=== PATIENT | female | born 1995 | race Caucasian/White ===

== ENCOUNTER → 2020-07-11 12:15 | Outpatient (CLI) | payer BC, SELFPAY ==
[2020-07-11 13:03] LABS: hCG Titer Quant., Serum 686 mIU/mL (1-3)
== END ==
PROVIDERS: PCP Family Medicine; Referring Provider Obstetrics & Gynecology; Visit Provider Obstetrics & Gynecology
DX: N91.2 Amenorrhea, unspecified (principal)
CPT/HCPCS: 36415; 84702

== ENCOUNTER → 2020-07-13 10:42 | Outpatient (CLI) | payer BC, SELFPAY ==
[2020-07-13 11:51] LABS: hCG Titer Quant., Serum 1836 mIU/mL (1-3)
== END ==
PROVIDERS: PCP Family Medicine; Referring Provider Obstetrics & Gynecology; Visit Provider Obstetrics & Gynecology
DX: O36.80X0 Pregnancy with inconclusive fetal viability, not applicable or unspecified (principal); Z3A.00 Weeks of gestation of pregnancy not specified
CPT/HCPCS: 36415; 84702

== ENCOUNTER → 2020-08-04 12:08 | Outpatient (CLI) | payer BC, SELFPAY ==
[2020-08-04 11:12] VITALS: BMI 31.6
[2020-08-04 13:08] LABS: Absolute Lymphocyte Count 1.37 X10^3/uL (0.83-4.51); Absolute Neutrophil Count 5.1 X10^3/uL (2.0-7.7); Basophil# 0.03 X10^3/uL; Basophil% 0.4 % (0-1); Eosinophil# 0.06 X10^3/uL; Eosinophils% 0.8 % (0-5); Hematocrit 41.1 % (37-47); Hemoglobin 14.2 g/dL (12.0-15.0); Lymphocyte # 1.37 X10^3/ul (4.0); Lymphocyte % 19.1 % (19-41); Mean Corp Hgb Conc 34.5 g/dL (32-36); Mean Corpuscular Hgb 31.6 pg (27.0-32.0); Mean Corpuscular Volume 91.3 fL (81-99); Mean Platelet Vol. 9.5 fl (6.2-12.0); Monocyte# 0.55 X10^3/uL; Monocyte% 7.7 % (0-10); NRBC Flagged by Analyzer 0 % (0-5); Neutrophil # 5.13 X10^3/uL (2.7-7.7); Neutrophil % 71.7 % (47-70); Platelet Count 297 K/mm3 (150-450); RBC Distribution Width CV 12.4 % (11.6-14.6); RBC Distribution Width SD 41.3 fl (35.1-43.9); White Blood Count 7.2 K/mm3 (4.4-11.0)
[2020-08-04 14:41] LABS: Amphetamine Urine VISTA NEGATIVE (<1000 ng/mL); Barbiturate Urine VISTA NEGATIVE (< 200 ng/mL); Benzodiazepine Urine VISTA NEGATIVE (< 200 ng/mL); Cocaine Urine VISTA NEGATIVE (< 300 ng/mL); Ecstacy Urine VISTA NEGATIVE (< 500 ng/mL); Methadone Urine VISTA NEGATIVE (< 300 ng/mL); PCP Urine VISTA NEGATIVE (< 25 ng/mL); THC Urine VISTA NEGATIVE (< 50 ng/mL); Vista UDS pH Range 6
[2020-08-04 15:17] LABS: HIV - WCH Non-Reactive (Nonreactive); Hepatitis B Surface Antigen Non-Reactive (Nonreactive); Hepatitis C Antibody Non-Reactive (Nonreactive); Rubella IgG 115.9 IU/mL
[2020-08-09 04:09] LABS: Chlamydia By Nucleic Acid AMP Negative (Negative)
[2020-08-09 10:29] LABS: Gonococcus By Nucleic Acid AMP Negative (Negative)
[2020-08-11 05:22] LABS: Rapid Plasmin Reagin (RPR) NONREACTIVE (NONREACTIVE)
== END ==
PROVIDERS: PCP Family Medicine; Referring Provider Obstetrics & Gynecology; Visit Provider Obstetrics & Gynecology
DX: Z34.00 Encounter for supervision of normal first pregnancy, unspecified trimester (principal)
CPT/HCPCS: 36415; 80307; 85025; 86592; 86703; 86762; 86803; 86850; 86900; 86901; 87077; 87086; 87088; 87186; 87340; 87491; 87591

== ENCOUNTER → 2020-12-29 07:53 | Outpatient (CLI) | payer BC, SELFPAY ==
[2020-12-01 11:23] VITALS: BMI 35.4
[2020-12-29 08:14] LABS: Absolute Lymphocyte Count 1.19 X10^3/uL (0.83-4.51); Absolute Neutrophil Count 7.9 X10^3/uL (2.0-7.7); Basophil# 0.03 X10^3/uL; Basophil% 0.3 % (0-1); Eosinophil# 0.13 X10^3/uL; Eosinophils% 1.3 % (0-5); Hematocrit 35.8 % (37-47); Hemoglobin 11.6 g/dL (12.0-15.0); Lymphocyte # 1.19 X10^3/ul (4.0); Lymphocyte % 11.9 % (19-41); Mean Corp Hgb Conc 32.4 g/dL (32-36); Mean Corpuscular Hgb 29.5 pg (27.0-32.0); Mean Corpuscular Volume 91.1 fL (81-99); Mean Platelet Vol. 8.9 fl (6.2-12.0); Monocyte# 0.69 X10^3/uL; Monocyte% 6.9 % (0-10); NRBC Flagged by Analyzer 0 % (0-5); Neutrophil # 7.87 X10^3/uL (2.7-7.7); Neutrophil % 78.8 % (47-70); Platelet Count 303 K/mm3 (150-450); RBC Distribution Width CV 12.6 % (11.6-14.6); RBC Distribution Width SD 41.7 fl (35.1-43.9); Red Blood Count 3.93 M/mm3 (4.2-5.4)
[2020-12-29 08:34] LABS: Glucose Challenge Gest 1H 50g 105 mg/dL (70-140)
== END ==
PROVIDERS: Referring Provider Obstetrics & Gynecology; Visit Provider Obstetrics & Gynecology
DX: Z34.90 Encounter for supervision of normal pregnancy, unspecified, unspecified trimester (principal); Z13.1 Encounter for screening for diabetes mellitus
CPT/HCPCS: 36415; 82950; 85025; 87086; 87088

== ENCOUNTER → 2021-02-16 07:50 | Outpatient (CLI) | payer BC, SELFPAY ==
[2021-02-09 08:48] VITALS: BMI 40.1
--- NOTE | 2021-02-16 07:53 | US_ITS ---
STUDY: SECOND AND THIRD TRIMESTER OBSTETRICAL ULTRASOUND - LIMITED REASON FOR EXAM: Female, 26 years old growth- measuring larger than dates LMP: 06/10/2020. PRIOR ULTRASOUND: None. TECHNIQUE: Transabdominal TECHNICAL QUALITY: Adequate. FINDINGS: There is a single intrauterine fetus. The fetus is in a cephalic presentation. There is demonstrated cardiac activity with a heart rate of 153 bpm. There is a normal amniotic fluid volume. The largest amniotic fluid pocket measures 3.97 cm. The amniotic fluid index (JUANITA) is 9.8 cm. The placenta is anterior in location and is not low lying. There are Grade 2 placental changes. The cervix measures 3.2 cm in length. BIOMETRY: BPD: 9.3 cm: 37 weeks, 5 days HC: 34.2 cm: 39 weeks, 2 days AC: 35.5 cm: 39 weeks, 2 days FL: 7.3 cm: 37 weeks, 3 days Age by LMP: 35 weeks, 6 days. NEO by LMP: 03/17/2021. age by current US: 38 weeks, 3 days. NEO by current US: 02/27/2021. Estimated weight: 3599 grams, +/- 540 grams, 99 percentile. US/OB Limited With Biometrics IMPRESSION: Single live intrauterine gestation with mean gestational age of 38 weeks and 3 days. Electronically Signed: Philippe Macdonald MD at 14:16 EDT , Service support ,
== END ==
PROVIDERS: Referring Provider Obstetrics & Gynecology; Visit Provider Obstetrics & Gynecology
DX: O26.849 Uterine size-date discrepancy, unspecified trimester (principal); Z3A.00 Weeks of gestation of pregnancy not specified
CPT/HCPCS: 76816

== ENCOUNTER → 2021-02-24 | Outpatient (CLI) | payer BC, SELFPAY ==
[2021-02-24 10:33] VITALS: BMI 40.4
== END | disposition home or self-care (01) ==
LOC: LABSPEC 12:23
PROVIDERS: Referring Provider Obstetrics & Gynecology; Visit Provider Obstetrics & Gynecology
DX: Z34.90 Encounter for supervision of normal pregnancy, unspecified, unspecified trimester (principal)
CPT/HCPCS: 87081

== ENCOUNTER 2021-03-08 19:15 | Outpatient (CLI) | payer BC, SELFPAY ==
[2021-03-02 09:54] VITALS: BMI 41.1
[2021-03-08 19:25] VITALS: BP 119/70; PULSE 93; TEMP 36.8; O2SAT 98
[2021-03-08 19:37] VITALS: BMI 42.5
--- NOTE | 2021-03-09 08:44 | OB.TRI.PN ---
Progress Notes Date of Service: 03/08/21 Progress Note: Patient presents for triage evaluation secondary to contractions. Patient made minimal change from 1.5 to 2cm on 2 hour recheck. Rechecked again 2 hours later and made no further change and was not uncomfortable with contractions. Discharged to home with strict return precautions FHT: Moderate variability reactive no decelerations category I tracing [place]: q2-5 Contractions Assessment and plan: Reactive NST, reassuring maternal and status patient discharged to home to follow-up next scheduled visit. See problem list details for additional plan information. Multi Select Codes - Urinary/Genital Urinary/Genital CPT Codes: No Charge
== END 2021-03-08 23:15 | disposition home or self-care (01) ==
LOC: WPOUT 19:19 → WP 19:20
PROVIDERS: Visit Provider Obstetrics & Gynecology
DX: O62.9 Abnormality of forces of labor, unspecified (principal); Z3A.00 Weeks of gestation of pregnancy not specified
CPT/HCPCS: 59025; 59050; 99218; G0378

== ENCOUNTER 2021-03-09 04:15 | Inpatient (IN) | payer BC, SELFPAY ==
[2021-03-08 19:37] VITALS: BMI 42.5
[2021-03-09] VITALS (71 sets, daily range): BP systolic 86–209; BP diastolic 43–122; PULSE 67–122; RESP 12–22; TEMP 36.4–37.3; O2SAT 82–100; BMI 42.7
[2021-03-09] MEDS: Lactated Ringers 500 ML 999 ML IV ×2 (04:30→06:05)
[2021-03-09] MEDS: Lactated Ringers 1,000 ML 50 ML IV (04:30)
[2021-03-09 04:47] LABS: Absolute Lymphocyte Count 0.83 X10^3/uL (0.83-4.51); Absolute Neutrophil Count 13.1 X10^3/uL (2.0-7.7); Basophil# 0.03 X10^3/uL; Basophil% 0.2 % (0-1); Eosinophil# 0.01 X10^3/uL; Eosinophils% 0.1 % (0-5); Hematocrit 33.9 % (37-47); Hemoglobin 10.6 g/dL (12.0-15.0); Lymphocyte # 0.83 X10^3/ul (0.83-4.51); Lymphocyte % 5.7 % (19-41); Mean Corp Hgb Conc 31.3 g/dL (32-36); Mean Corpuscular Hgb 25.5 pg (27.0-32.0); Mean Corpuscular Volume 81.7 fL (81-99); Mean Platelet Vol. 9.9 fl (6.2-12.0); Monocyte# 0.56 X10^3/uL; Monocyte% 3.8 % (0-10); NRBC Flagged by Analyzer 0 % (0-5); Neutrophil # 13.09 X10^3/uL (2.7-7.7); Neutrophil % 89.5 % (47-70); Platelet Count 345 K/mm3 (150-450); RBC Distribution Width CV 13.8 % (11.6-14.6); RBC Distribution Width SD 40.4 fl (35.1-43.9); Red Blood Count 4.15 M/mm3 (4.2-5.4); White Blood Count 14.6 K/mm3 (4.4-11.0)
[2021-03-09] MEDS: fentaNYL-bupivacaine (epidural) 100 ML BAG EPIDURAL ×3 (05:59→15:22)
--- NOTE | 2021-03-09 08:36 | HP.PCM_ITS ---
- Problem List (1) Active labor Status: Acute (2) 36 weeks gestation of Status: Acute Comment: COVID test ordered 02/22/21 (changed to 03/15/21 at 1330 (3) macrosomia during Status: Acute Comment: EFW 99%ile on US 02/16, ordered repeat 4 weeks after, consider IOL at 39-40 (4) History of tetanus, diphtheria, and acellular pertussis booster vaccination (Tdap) Status: Acute Comment: 12/29/20 (5) Status: Acute Qualifiers: Comment: Carrier, NIPT, and AFP declined. NL anatomy (6) Supervision of normal Status: Acute Qualifiers: Comment: PRR NEO 03/17/21 boy Larry Spouse:Atul (7) UTI (urinary tract infection), affecting care of mother, antepartum Status: Acute Comment: tx Macrobid 08/08 repeat culture neg. History and Physical Date of Admission: 03/09/21 Intake Vital Signs 03/02/21 Height 5 ft 3 in 03/02/21 Weight: 232 lb 8 oz 03/02/21 BMI 41.1 03/02/21 BP 120/80 Intake Visit Reasons: 38WK OB Motion Study Analyst Required: No Is patient in pain?: No Allergies Sulfa (Sulfonamide Antibiotics) Allergy (Intermediate, Verified 03/02/21 09:54) Rash Medications multivitamin no.47-iron fum 27 mg-folate no.1 1 mg-dha 300 mg capsule cap PO 08/04/20 [History Confirmed 03/02/21] Last Menstral Period: 04/19/20 Zika: Zika virus screening: Negative : No PFSH PFSH Surgical History H/O wrist surgery (Acute) History of tonsillectomy (Acute) Family History Father Myocardial infarction Social History (Updated 03/02/21 @ 10:[address] Anjana Dorado MD) adopted: No household members: spouse housing: house current occupational status: employed current occupation: [employer] pets and animals: Yes Smoking Status: Never smoker second hand exposure: No alcohol intake: current details: not while substance use type: does not use seatbelt use: always do you feel safe at home: Yes additional social history: Atul- rosalind Pregancy History 1 Elective abortions Hx Para Spontaneous abortions Hx # Term Pregnancies Ectopic pregnancies Hx # Pregnancies Multiple births # of living children HPI 38WK OB: Details: RYNE HERNANDEZ is a 26 year old at 38 weeks who presents for active labor. She made cervical change from 1 to 4cm OB Visit NEO Calculator Estimated Delivery Date Method Current WG Current Estimate 03/17/21 Ultrasound #1 37w 6d Expected Delivery Route/Plan , consider IOL 39-40 weeks due to LGA Labor Preferences- CB/BF classes: planning 02/24 labor support person: Atul labor intervention preferences: [] pain management options preferred: open to epidural cut cord/dad catch: maybe : yes PP control planned: [] discussed possible routes of delivery and associated risks: [] special requests: [] Specific Issue/Plans flu vaccine: given tdap vaccine: given rhogam: na LARC form signed: yes movement and labor precautions reviewed. Problem list reviewed and updated with the most current plan of care details and appropriate orders placed. Relevant counseling for the gestational age provided. Continue routine care and follow up unless otherwise noted in visit notes/problem list details Initial Weight: 180 lb Date EGA Weight BP Urine Prot Glucose FHR FuHt Pres Dilation Effaced St Visit Note 08/04/20 7w 6d 179 lb (-16 oz) 160 GP - CRL consistent with LMP. GP - CRL consistent with LMP of 7w6d. 09/05/20 12w 3d 181 lb (+16 oz) 102/74 Negative Negative 160 GP - no cramping or bleeding. Minimal nausea. PRR. Declines genetic testing. 10/03/20 16w 3d 184 lb 2 oz (+4 lb 2 oz) 98/74 Negative Negative 140 GP - no cramping or bleeding. Denies complaints. N/V feeling much better. 11/02/20 20w 5d 192 lb (+12 lb) 100/64 Negative Negative 145 SM- no vb lof good fm no regular ctx 12/01/20 24w 6d 200 lb (+20 lb) 108/62 Negative Negative 145 25 Sm- no vb lof good fm no regular ctx 12/29/20 28w 6d 214 lb 8 oz (+34 lb 8 oz) 100/60 Negative Negative 138 29 MH-NO VB, LOF. Good FM. 28 wk labs, tdap, larc, urine culture. 01/12/21 30w 6d 220 lb (+40 lb) 118/82 Negative Negative 140 31 SM- n ovb lof good fm no regular ctx neg urine culture 01/26/21 32w 6d 223 lb 8 oz (+43 lb 8 oz) 100/72 Negative Negative 135 33 GP - no ctx, lof, VB, dfm. Discussed CB classes - planning 02/25. 02/09/21 34w 6d 226 lb 4 oz (+46 lb 4 oz) 112/82 Negative Negative 130 36 Cephalic GP - no LOF, VB, DFM, regular ctx. Measuring 2w ahead - growth US ordered. 02/16/21 35w 6d 231 lb (+51 lb) 126/84 Negative Negative 135 37 Cephalic GP - no LOF, VB, DFM, ctx. Growth done today >90%ile. Discussed would consider IOL at 39-40w potentially. 02/24/21 37w 0d 228 lb (+48 lb) 124/74 Negative Negative 135 39 Cephalic 0 SM- no vb lof good fm no regular ctx, discussed IOL 39-40 03/02/21 37w 6d 232 lb 8 oz (+52 lb 8 oz) 120/80 Negative Negative 135 40 Cephalic 0.5 0 -4 SM- no vb lof good fm no regular ctx, unfavorable cervix at this time, will reevaluate next week to consider IOL. unlcear benefit/risks of IOL for LGA ACOG First Trimester First Trimester: Desire for , Alcohol, Tobacco Cessation, Illicit/Recreational Drug/Substance Use, Barriers to care, Unstable Housing, Communication Barriers, Environmental/Work Hazards, Anticipated Course of Care, Toxoplasmosis Precations, Use of Any medications, Sexual activity, Exercise, Dental Care, Sauna/Hot tub use, Seat Belt use, Childbirth classes/Hospital facilities, Indications for US and Screening for Aneuploidy Second Trimester Second Trimester: Signs and Symptoms of Labor, Selecting a care provider, Reproductive Life Planning, Care Planning, Depression/Anxiety and Intimate Partner Violence; discussed Tobacco Cessation Diagnostics Diagnostics Diagnostics Glucose 1 Hr 50 gm 105 mg/dL (70-140) 12/29/20 Hgb 11.6 g/dL (12.0-15.0) L 12/29/20 Hct 35.8 % (37-47) L 12/29/20 Details: HIV: Urine Culture: Sequential Screen: NIPT Screen: ROS Const Reports system reviewed and no additional complaints, except as documented Card Reports system reviewed and no additional complaints, except as documented Resp Reports system reviewed and no additional complaints, except as documented GI Reports system reviewed and no additional complaints, except as documented, Reports nausea Reports system reviewed and no additional complaints, except as documented Musc Reports system reviewed and no additional complaints, except as documented all other systems reviewed and negative Exam Const General: cooperative, healthy appearing, comfortable [facility] Head: normal to inspection Nose: external nose normal Face and sinus: normal facial exam Neck Neck: normal visual inspection, full ROM, no lymphadenopathy Thyroid: thyroid normal Chest Chest palpation & inspection: normal inspection of the chest Resp Effort & Inspection: normal respiratory effort GI Inspection: normal to inspection Palpation: soft, other (gravid uterus) Other: infant vertex and appropriate size for gestational age Other: Cervical Exam: /-2 Extrem General: pedal edema Results POC Urinalysis 2 Dip (Clinic) Office Urine Glucose Negative Last Edit by Rea Swartz on 03/02/21 10:08 Office Urine Protein Negative Last Edit by Rea Swartz on 03/02/21 10:08 Assessment & Plan Problems 1. 36 weeks gestation of Z3A.36 COVID test ordered 02/22/21 (changed to 03/15/21 at 1330 2. macrosomia during O36.60X0 EFW 99%ile on US 02/16, ordered repeat 4 weeks after, consider IOL at 39-40 3. History of tetanus, diphtheria, and acellular pertussis booster vaccination (Tdap) Z92.29 12/29/20 4. UTI (urinary tract infection), affecting care of mother, antepartum O23.40 tx Macrobid 08/08 repeat culture neg. 5. Supervision of normal Z34.90 PRR NEO 03/17/21 fortunato Juarez Spouse:Atul 6. Z34.90 Carrier, NIPT, and AFP declined. NL anatomy Patient presents IAL, plan expectant management for , pitocin/AROM PRN if needed. Pain management: plans epidural. GBS negative. Management of any complications: suspected macrosomia I have reviewed the [facility] and made any clinically relevant updates. UPDATE- I have seen the patient and performed any clinically relevant updates to the history and physical exam. Ivonne Albert MD
[2021-03-09] MEDS: Lactated Ringers 1,000 ML 200 ML IV ×2 (09:55→15:22)
[2021-03-09] MEDS: Acetaminophen 500 MG Tablet PO (15:34)
[2021-03-09] MEDS: Sodium Citrate/Citric Acid 30 ML UDC PO (15:34)
[2021-03-09] MEDS: Cefazolin 2 GM in 0.9% Normal Saline 100 ML IV (16:05)
--- NOTE | 2021-03-09 17:08 | OP.PCM_ITS ---
Problem List (1) Active labor Status: Acute (2) 36 weeks gestation of Status: Acute Comment: COVID test ordered 02/22/21 (changed to 03/15/21 at 1330 (3) macrosomia during Status: Acute Comment: EFW 99%ile on US 02/16, ordered repeat 4 weeks after, consider IOL at 39-40 (4) History of tetanus, diphtheria, and acellular pertussis booster vaccination (Tdap) Status: Acute Comment: 12/29/20 (5) Status: Acute Qualifiers: Comment: Carrier, NIPT, and AFP declined. NL anatomy (6) Supervision of normal Status: Acute Qualifiers: Comment: PRR NEO 03/17/21 fortunato Juarez Spouse:Atul (7) UTI (urinary tract infection), affecting care of mother, antepartum Status: Acute Comment: tx Macrobid 08/08 repeat culture neg. Delivery Classification: LEXY Final NEO: 03/17/21 Gestational age: 38 Weeks and 6 Days product support analyst: Zaire Boyd Type of Anesthesia:: Epidural/Supplement Special Medications: Ancef, azithromycin Date of Procedure: 03/09/21 Pre-Operative Diagnosis: Term , active labor, arrest of descent, cephalopelvic disproportion Post-Operative Diagnosis: Same Indications: 26-year-old G1, P0 at 38 weeks gestation admitted in active labor. Patient made cervical change to complete dilation without augmentation. Patient pushed with excellent maternal effort for 3-1/2 hours, however no descent was noted and cephalopelvic disproportion was suspected. The patient was becoming exhausted and therefore the decision was made to proceed with a primary C- section for arrest of descent and cephalopelvic disproportion. The risk, benefits, indications, and alternatives to the procedure were discussed with the patient including bleeding, infection, and visceral vascular injury. Patient voiced understanding and agreed to proceed. Indications for : Arrrest of Descent, Suspected cephalopelvic disproportion Description of Procedure: The patient is a G1, P0 at 38 weeks gestation who presented for primary C-secti on. Epidural anesthesia was dosed for spinal without difficulty. Mcghee catheter was previously placed. The patient was placed in the dorsal supine position with leftward tilt. Patient was prepped and draped in the normal sterile fashion. Pfannenstiel skin incision was made with the scalpel and carried through to the underlying layer of fascia with the scalpel. Fascia was nicked in the midline and the incision extended laterally. The rectus bellies were dissected off superiorly and inferiorly with out complication both sharply and bluntly. The peritoneum was entered digitally. The incision was stretched and a low transverse uterine incision was made with the scalpel. The head was noted to be deeply wedged in the pelvis. Hand from below was employed and the head was elevated out of the pelvis to the level of the hysterotomy, however the baby then flipped to transverse presentation and the shoulder was noted to be at the level of the hysterotomy. The decision was made to deliver the baby from the breech presentation. The head hips were grasped and brought to the level of the hysterotomy. Both feet were then grasped and brought through the hysterotomy. The was wrapped in a moist towel, and both arms were swept across the body. Gentle pressure was then applied to the mandible and the head was flexed and delivered through the hyster otomy. The cord was clamped and cut and the infant was handed off to awaiting nurse. The placenta was delivered spontaneously immediately following and was noted to be intact and have a three-vessel cord. The uterus was exteriorized cleared of all clots and debris. Two small lacerations were noted to the right uterine artery and an [place] stitch was performed in a [id number] fashion using #1 Monocryl. The uterine artery was then noted to be intact and no further bleeding was noted. The incision was closed in a double layer closure using #1 Monocryl. The ovaries and fallopian tubes were noted to be within normal limits. The uterus was returned to the maternal abdomen and gutters were cleared of all clots and debris. An interrupted stitch of 0 Vicryl was used to reapproximate the muscle. Gloves were changed prior to fascial closure. Fascia was closed with 0 PDS in a running fashion. Subcutaneous tissue was copiously irrigated and the skin was closed with 3-0 Monocryl in a subcuticular fashion. Mepilex dressing was applied without complication. Patient was taken to recovery in stable condition. It was discussed with the patient that based on the clinical information obtained during this encounter, combined with her history, at this time I would recommend C-sections for future deliveries if further pregnancies are desired unless her next baby is suspected to be significantly smaller. Amniotic Membrane Rupture Type: Artificial Amniotic Fluid Description: Clear Placenta Disposition: [facility] Specimen(s) sent to pathology: Placenta Drain: Mcghee to straight drain Fluids Replaced: 1000 Cord Entanglement: None Cord Vessel Description: 3 Vessels Esitmated Blood Loss (ml): 1100 Infant Gender: Male Delayed cord clamping: No Antibiotic Given: Ancef 2 grams IV x1, Zithromax 500 mg/5 mL X1 Pt instructed on risks of surgery: Bleeding, Anesthesia Risks, Infection, Need for Future C-Sections, Injury to surrounding structure(s) including bowel and bladder Complications: None - Admit VTE Documentation VTE Present on Admission: No VTE Mechan Device Prophylaxis: SCD's VTE Pharm Prophylaxis ordered?: Yes Multi Select Codes - Urinary/Genital Urinary/Genital CPT Codes: 44264 Delivery [facility]
[2021-03-09] MEDS: Oxytocin 30 units/NS 500 ml 30 UNITS/500 ML IV.SOLN 167 UNITS IV (17:14)
--- NOTE | 2021-03-09 17:19 | DCINST_ITS ---
Discharge Diet: No Restrictions Discharge Activity: May Not Drive - for 2 weeks or while taking narcotic pain meds., May Shower, May Take a Tub Bath - in 7 days. May resume sexual activity in: 4-6 weeks Lifting Restrictions: 20 pounds Additional Activity Instructions:: Nothing in the vagina for 4-6 weeks. You may return to work/school in 6 weeks. Call your doctor if your incision/area has: Continuous Slow Oozing, Sudden Increased Bleeding, Increased Pain/ Swelling, Increased Redness, Foul Smelling Discharge Call your doctor if you observe: Fever of 101 or Higher Suture Line Care: Avoid Pulling/Pushing, Avoid Pinching/Bending Additional Instructions: If you experience any of the following, contact your healthcare provider. * Bleeding that soaks a pad every hour for 2 hours * Fever 100.4 or higher * Unrelieved incision or abdominal pain * Swelling, redness, discharge or bleeding from your incision or episiotomy site * Your incision begins to separate * Problems urinating (including inability to urinate or burning while urinating). * Visual changes * Severe headache * Flu-like symptoms * Pain or redness in one of both of your breasts * Pain, warmth, tenderness or swelling in your legs, especially the calf area * Frequent nausea and vomiting * Symptoms of depression or anxiety If you experience any of the following, call 911 or go to the nearest Emergency Room. * Chest pain * Problems breathing * Seizure activity * Partial or complete paralysis of a body part, slurred speech, weakness or drooping of the face, or a sudden inability to walk or hold your balance Allergies/Adverse Reactions: Allergies Sulfa (Sulfonamide Antibiotics) Allergy (Intermediate, Verified 03/09/21 04:05) Rash Medications to take at Discharge multivitamin no.47-iron fum 27 mg-folate no.1 1 mg-dha 300 mg capsule 1 cap PO DAILY 08/04/20 Follow-Up: Call to make an appointment with your doctor for an incision check in 1-2 weeks. You will also need a 6 week post- follow up appointment. Test results from this visit will be discussed in further detail at your follow- up appointment, if applicable. Primary Care Physician: Care Physician,No Primary [Primary Care Provider] -
[2021-03-09] MEDS: Ketorolac 30 MG/ML Syringe IV ×2 (17:34→23:02)
--- NOTE | 2021-03-09 17:57 | NURSING ---
late entry-1730- called juan del castillo regarding pt being painful. to give toradol and she will be in to see pt in half hour to assess how this helped may give duramorph if pt still painful and if bp above 100 systolic
[2021-03-09] MEDS: Lactated Ringers 1,000 ML 100 ML IV (20:05)
--- NOTE | 2021-03-09 20:47 | NURSING ---
Pt. education: Pt. and are both CPR certified.
[2021-03-09] MEDS: Acetaminophen 500 MG Tablet 1000 MG PO (21:13)
--- NOTE | 2021-03-09 22:17 | NURSING ---
2109- Epidural catheter removed from pt's back. Blue tip intact.
[2021-03-10] VITALS (15 sets, daily range): BP systolic 78–119; BP diastolic 33–63; PULSE 80–101; RESP 16–18; TEMP 36.6–37; O2SAT 96–99
[2021-03-10] MEDS: Acetaminophen 500 MG Tablet 1000 MG PO ×4 (03:23→22:04)
[2021-03-10] MEDS: Ketorolac 30 MG/ML Syringe IV ×2 (04:39→11:40)
[2021-03-10] MEDS: Enoxaparin 40 MG/0.4 ML Syringe SC (04:40)
[2021-03-10] MEDS: 0.9% Saline Lock 10 ML Syringe IV ×2 (04:40→11:45)
[2021-03-10 05:01] LABS: Hematocrit 27.5 % (37-47); Hemoglobin 8.5 g/dL (12.0-15.0); Mean Corp Hgb Conc 30.9 g/dL (32-36); Mean Corpuscular Hgb 25.8 pg (27.0-32.0); Mean Corpuscular Volume 83.3 fL (81-99); Mean Platelet Vol. 9.6 fl (6.2-12.0); Platelet Count 237 K/mm3 (150-450); RBC Distribution Width CV 14.1 % (11.6-14.6); RBC Distribution Width SD 43.1 fl (35.1-43.9); White Blood Count 11.9 K/mm3 (4.4-11.0)
[2021-03-10] MEDS: Lactated Ringers 500 ML 999 ML IV (05:09)
--- NOTE | 2021-03-10 05:31 | NURSING ---
0454- Pt vital signs assessed, blood pressure low (see duramorph intervention). Pt. denies headache or dizziness. No complaints and is asymptomatic. All other vital signs WNL. Pt. lochia has been scant to small overnight, with fundus firm at u-1. Dr. Albert called and order given to give a 500cc bolus. Morning CBC sent.
--- NOTE | 2021-03-10 08:00 | PCM.PN.OB ---
Patient Problems: Active and Suspected Problems (Last Reviewed 03/02/21 @ 09:54 by Rea Swartz) Active labor (Acute) 36 weeks gestation of (Acute) COVID test ordered 02/22/21 (changed to 03/15/21 at 1330 macrosomia during (Acute) EFW 99%ile on US 02/16, ordered repeat 4 weeks after, consider IOL at 39-40 History of tetanus, diphtheria, and acellular pertussis booster vaccination (Tdap) (Acute) 12/29/20 UTI (urinary tract infection), affecting care of mother, antepartum (Acute) tx Macrobid 08/08 repeat culture neg. Supervision of normal (Acute) PRR NEO 03/17/21 boy Larry Spouse:Atul (Acute) Carrier, NIPT, and AFP declined. NL anatomy Subjective: Patient doing well without complaints. Tolerating PO. Ambulating and voiding without difficulty. Breast feeding well. Denies chest pain, shortness of breath, calf pain/swelling, fevers, chills, lightheadedness. Objective: Laboratory Tests 03/10/21 03/09/21 03/09/21 Range/Units 04:50 04:30 04:30 WBC 11.9 H 14.6 H (4.4-11.0) K/mm3 RBC 3.30 L 4.15 L (4.2-5.4) M/mm3 Hgb 8.5 L 10.6 L (12.0-15.0) g/dL Hct 27.5 L 33.9 L (37-47) % MCV 83.3 81.7 (81-99) fL MCH 25.8 L 25.5 L (27.0-32.0) pg MCHC 30.9 L 31.3 L (32-36) g/dL RDW Std Deviation 43.1 40.4 (35.1-43.9) fl RDW Coeff of Cathy 14.1 13.8 (11.6-14.6) % Plt Count 237 345 (150-450) K/mm3 MPV 9.6 9.9 (6.2-12.0) fl Immature Gran % (Auto) 0.700 (0.0-0.9) % Neut % (Auto) 89.5 H (47-70) % Lymph % (Auto) 5.7 L (19-41) % [place] % (Auto) 3.8 (0-10) % Eos % (Auto) 0.1 (0-5) % Baso % (Auto) 0.2 (0-1) % Absolute Neuts (auto) 13.1 H (2.0-7.7) X10^3/uL Absolute Lymphs (auto) 0.83 (0.83-4.51) X10^3/uL Nucleated RBC % 0 (0-5) % Blood Type B POSITIVE Antibody Screen NEGATIVE - Physical Exam Vitals/I&O's: Vital Signs Temp Pulse Resp BP Pulse Ox 98.8 F 80 17 91/51 L 96 03/09/21 23:10 03/10/21 05:30 03/10/21 05:30 03/10/21 05:46 03/10/21 05:30 Oxygen Delivery Method Room Air Weight: 233 lb 12.8 oz Body Mass Index (BMI) 42.7 Intake and Output for Last 24 Hours 03/08/21 03/09/21 03/10/21 23:59 23:59 23:59 Intake Total 3780.95 / 3780.95 1025 / 1025 Output Total 2750 / 2750 1450 / 1450 Balance 1030.95 / 1030.95 -425 / -425 General: Alert, Oriented x3, Cooperative, No apparent distress, Well developed, Well nourished HEENT: Atraumatic, PERRLA, EOMI, Normocephalic Neck: Supple, No JVD Lungs: Normal air movement Cardiovascular: Regular rate Abdomen: Soft, Non Tender, Non-Distended, - - incision c/d/i, fundus firm Extremities: No edema, No Calf Tenderness Neurological: Cranial nerves II-XII grossly intact, Neuro grossly intact Psych/Mental Status: Normal Affect, Appropriate Microbiology Past 72 Hours 03/09/21 04:30 Mucosa - Nose SARS-CoV-2 Antigen (Rapid) - Final Laboratory Results 03/10/21 04:50: WBC 11.9 H, RBC 3.30 L, Hgb 8.5 L, Hct 27.5 L, MCV 83.3, MCH 25.8 L, MCHC 30.9 L, RDW Std Deviation 43.1, RDW Coeff of Cathy 14.1, Plt Count 237, MPV 9.6 Current Medications Acetaminophen (Acetaminophen 500 Mg Tablet) 1,000 mg PO Q6H [facility] Last Admin: 03/10/21 03:23 Dose: 1,000 mg Documented by: Bisacodyl (Bisacodyl 10 Mg Suppository) 10 mg RC UD PRN PRN Reason: If no BM Diphenhydramine HCl (Diphenhydramine 25 Mg Capsule) 25 mg PO Q6H PRN PRN PRN Reason: ITCHING Stop: 03/10/21 19:45 Enoxaparin Sodium (Enoxaparin 40 Mg/0.4 Ml Syringe) 40 mg SC DAILY@0400 [facility] Last Admin: 03/10/21 04:40 Dose: 40 mg Documented by: Hydrocortisone (Hydrocortisone 2.5% Crm) 1 applic TOPICAL TID PRN PRN; Protocol PRN Reason: Discomfort Lactated Ringer's () 1,000 mls @ 100 mls/hr IV .Q10H [facility] Last Infusion: 03/10/21 05:56 Dose: Infused Documented by: Ketorolac Tromethamine (Ketorolac 30 Mg/Ml Syringe) 30 mg IV Q6H [facility] Stop: 03/10/21 11:31 Last Admin: 03/10/21 04:39 Dose: 30 mg Documented by: Methylergonovine Maleate (Methylergonovine 0.2 Mg/Ml Ampul) 0.2 mg IM X1 PRN PRN Reason: Uterine Atony Metoclopramide HCl (Metoclopramide 10 Mg/2 Ml Vial) 10 mg IV Q4H PRN PRN PRN Reason: Nausea/Vomiting Nalbuphine HCl (Nalbuphine 10 Mg/Ml Ampul) 5 mg IV Q3H PRN PRN PRN Reason: ITCHING Stop: 03/10/21 19:45 Naloxone HCl (Naloxone 0.4 Mg/Ml Syringe) 0.02 mg IV Q1M PRN PRN Reason: RR <10 and pt unresponsive Naproxen (Naproxen 250 Mg Tablet) 500 mg PO Q8H [facility] Ondansetron HCl (Ondansetron 4 Mg/2 Ml Vial) 4 mg IV Q4H PRN PRN PRN Reason: Nausea Oxycodone HCl (Oxycodone 5 Mg Tablet) 5 - 10 mg PO Q4H PRN PRN PRN Reason: Pain Score 4-10 Prochlorperazine Edisylate (Prochlorperazine 10 Mg/2 Ml Vial) 10 mg IV Q6H PRN PRN PRN Reason: NAUSEA Senna/Docusate Sodium (Senna/Docusate Sodium 1 Tablet) 0 tablet PO DAILY RAMANDEEP Simethicone (Simethicone 80 Mg Tablet) 80 mg PO PCHS PRN PRN Reason: Indigestion/stomach pain Last Admin: 03/10/21 03:26 Dose: 80 mg Documented by: Sodium Chloride (0.9% Saline Lock 10 Ml Syringe) 5 - 15 ml IV UD PRN PRN Reason: SALINE FLUSH Last Admin: 03/10/21 04:40 Dose: 10 ml Documented by: Medical Necessity - Tobacco Use Smoking Status: Never smoker Assessment/Plan All Active Problems (Last Reviewed 03/02/21 @ 09:54 by Rea Swartz) Active labor (Acute) 36 weeks gestation of (Acute) macrosomia during (Acute) History of tetanus, diphtheria, and acellular pertussis booster vaccination (Tdap) (Acute) UTI (urinary tract infection), affecting care of mother, antepartum (Acute) Supervision of normal (Acute) (Acute) s/p LTCS PPD # 1 1. routine post care 2. breast feeding- support given 3. rh positive 4. rubella immune 5. Acute blood loss anemia - Hb 8.5 6. Hypotension - s/p fluid bolus, asymptomatic
[2021-03-10] MEDS: Senna/Docusate Sodium 1 Tablet PO (09:50)
[2021-03-10] MEDS: Naproxen 250 MG Tablet 500 MG PO (18:41)
[2021-03-11] MEDS: Naproxen 250 MG Tablet 500 MG PO ×2 (01:42→10:32)
[2021-03-11 01:45] VITALS: BP 110/61; PULSE 88; RESP 16; TEMP 36.7; O2SAT 95
[2021-03-11] MEDS: Enoxaparin 40 MG/0.4 ML Syringe SC (05:05)
[2021-03-11] MEDS: Acetaminophen 500 MG Tablet 1000 MG PO ×2 (05:06→11:18)
[2021-03-11 08:49] VITALS: BP 98/54; PULSE 92; RESP 16; TEMP 36.3
--- NOTE | 2021-03-11 10:13 | PCM.PN.OB ---
Patient Problems: Active and Suspected Problems (Last Reviewed 03/02/21 @ 09:54 by Rea Swartz) History of tetanus, diphtheria, and acellular pertussis booster vaccination (Tdap) (Acute) 12/29/20 Subjective: Patient doing well without complaints. Tolerating PO. Ambulating and voiding without difficulty. Breast feeding well. Denies chest pain, shortness of breath, calf pain/swelling, fevers, chills, lightheadedness. Objective: Laboratory Tests 03/10/21 03/09/21 03/09/21 Range/Units 04:50 04:30 04:30 WBC 11.9 H 14.6 H (4.4-11.0) K/mm3 RBC 3.30 L 4.15 L (4.2-5.4) M/mm3 Hgb 8.5 L 10.6 L (12.0-15.0) g/dL Hct 27.5 L 33.9 L (37-47) % MCV 83.3 81.7 (81-99) fL MCH 25.8 L 25.5 L (27.0-32.0) pg MCHC 30.9 L 31.3 L (32-36) g/dL RDW Std Deviation 43.1 40.4 (35.1-43.9) fl RDW Coeff of Cathy 14.1 13.8 (11.6-14.6) % Plt Count 237 345 (150-450) K/mm3 MPV 9.6 9.9 (6.2-12.0) fl Immature Gran % (Auto) 0.700 (0.0-0.9) % Neut % (Auto) 89.5 H (47-70) % Lymph % (Auto) 5.7 L (19-41) % [place] % (Auto) 3.8 (0-10) % Eos % (Auto) 0.1 (0-5) % Baso % (Auto) 0.2 (0-1) % Absolute Neuts (auto) 13.1 H (2.0-7.7) X10^3/uL Absolute Lymphs (auto) 0.83 (0.83-4.51) X10^3/uL Nucleated RBC % 0 (0-5) % Blood Type B POSITIVE Antibody Screen NEGATIVE - Physical Exam Vitals/I&O's: Vital Signs Temp Pulse Resp BP Pulse Ox 97.3 F L 92 16 98/54 L 95 03/11/21 08:49 03/11/21 08:49 03/11/21 08:49 03/11/21 08:49 03/11/21 01:45 Oxygen Delivery Method Room Air Weight: 233 lb 12.8 oz Body Mass Index (BMI) 42.7 Intake and Output for Last 24 Hours 03/09/21 03/10/21 03/11/21 23:59 23:59 23:59 Intake Total 3780.95 / 3780.95 1025 / 1025 Output Total 2750 / 2750 2650 / 2650 Balance 1030.95 / 1030.95 -1625 / -1625 General: Alert, Oriented x3, Cooperative, No apparent distress, Well developed, Well nourished HEENT: Atraumatic, PERRLA, EOMI, Normocephalic Neck: Supple, No JVD Lungs: Normal air movement Cardiovascular: Regular rate Abdomen: Soft, Non Tender, Non-Distended, - - incision c/d/i, fundus firm Extremities: No edema, No Calf Tenderness Neurological: Cranial nerves II-XII grossly intact, Neuro grossly intact Psych/Mental Status: Normal Affect, Appropriate Microbiology Past 72 Hours 03/09/21 04:30 Mucosa - Nose SARS-CoV-2 Antigen (Rapid) - Final Current Medications Acetaminophen (Acetaminophen 500 Mg Tablet) 1,000 mg PO Q6H [facility] Last Admin: 03/11/21 05:06 Dose: 1,000 mg Documented by: Bisacodyl (Bisacodyl 10 Mg Suppository) 10 mg RC UD PRN PRN Reason: If no BM Enoxaparin Sodium (Enoxaparin 40 Mg/0.4 Ml Syringe) 40 mg SC DAILY@0400 [facility] Last Admin: 03/11/21 05:05 Dose: 40 mg Documented by: Hydrocortisone (Hydrocortisone 2.5% Crm) 1 applic TOPICAL TID PRN PRN; Protocol PRN Reason: Discomfort Methylergonovine Maleate (Methylergonovine 0.2 Mg/Ml Ampul) 0.2 mg IM X1 PRN PRN Reason: Uterine Atony Metoclopramide HCl (Metoclopramide 10 Mg/2 Ml Vial) 10 mg IV Q4H PRN PRN PRN Reason: Nausea/Vomiting Naloxone HCl (Naloxone 0.4 Mg/Ml Syringe) 0.02 mg IV Q1M PRN PRN Reason: RR <10 and pt unresponsive Naproxen (Naproxen 250 Mg Tablet) 500 mg PO Q8H [facility] Last Admin: 03/11/21 01:42 Dose: 500 mg Documented by: Ondansetron HCl (Ondansetron 4 Mg/2 Ml Vial) 4 mg IV Q4H PRN PRN PRN Reason: Nausea Oxycodone HCl (Oxycodone 5 Mg Tablet) 5 - 10 mg PO Q4H PRN PRN PRN Reason: Pain Score 4-10 Prochlorperazine Edisylate (Prochlorperazine 10 Mg/2 Ml Vial) 10 mg IV Q6H PRN PRN PRN Reason: NAUSEA Senna/Docusate Sodium (Senna/Docusate Sodium 1 Tablet) 0 tablet PO DAILY [facility] Last Admin: 03/10/21 09:50 Dose: 2 tablet Documented by: Simethicone (Simethicone 80 Mg Tablet) 80 mg PO PCHS PRN PRN Reason: Indigestion/stomach pain Last Admin: 03/10/21 15:11 Dose: 80 mg Documented by: Sodium Chloride (0.9% Saline Lock 10 Ml Syringe) 5 - 15 ml IV UD PRN PRN Reason: SALINE FLUSH Last Admin: 03/10/21 11:45 Dose: 10 ml Documented by: Medical Necessity - Tobacco Use Smoking Status: Never smoker Assessment/Plan All Active Problems (Last Reviewed 03/02/21 @ 09:54 by Rea Swartz) History of tetanus, diphtheria, and acellular pertussis booster vaccination (Tdap) (Acute) 36 weeks gestation of (Resolved) Active labor (Resolved) macrosomia during (Resolved) (Resolved) Supervision of normal (Resolved) UTI (urinary tract infection), affecting care of mother, antepartum (Resolved) s/p LTCS PPD # 2 1. routine post care 2. breast feeding- support given 3. rh positive 4. rubella immune
[2021-03-11] MEDS: Senna/Docusate Sodium 1 Tablet PO (10:32)
[2021-03-11 14:47] VITALS: BP 100/64; PULSE 91; RESP 16; TEMP 36.7
== END 2021-03-11 17:20 | disposition home or self-care (01) | DRG 787 ==
LOC: WPOUT 04:16 → WP 04:17
PROVIDERS: Admitting Provider Obstetrics & Gynecology; Visit Provider Obstetrics & Gynecology
DX: O65.9 Obstructed labor due to maternal pelvic abnormality, unspecified (principal); D62 Acute posthemorrhagic anemia; Z3A.38 38 weeks gestation of pregnancy; Z37.0 Single live birth; O36.63X0 Maternal care for excessive fetal growth, third trimester, not applicable or unspecified; O62.1 Secondary uterine inertia; I95.9 Hypotension, unspecified; O99.02 Anemia complicating childbirth
CPT/HCPCS: 59025; 59050; 85025; 85027; 86850; 86900; 86901; 87426; 99218; J7120; A4216; G0378; J2405

== ENCOUNTER → 2021-04-20 | Outpatient (CLI) | payer BC, SELFPAY ==
[2021-04-20 10:53] VITALS: BMI 42.7
[2021-04-25 13:28] LABS: HPV Reflexed? NOT INDICATED
== END | disposition home or self-care (01) ==
LOC: LABSPEC 16:27
PROVIDERS: Referring Provider Obstetrics & Gynecology; Visit Provider Obstetrics & Gynecology
DX: Z12.4 Encounter for screening for malignant neoplasm of cervix (principal)
CPT/HCPCS: 88175; G0145

== ENCOUNTER → 2021-06-21 12:46 | Outpatient (CLI) | payer BC, SELFPAY ==
[2021-06-21 08:37] VITALS: BMI 42.7
--- NOTE | 2021-06-21 12:49 | CT_ITS ---
STUDY: CT ABDOMEN AND PELVIS WITH CONTRAST REASON FOR EXAM: Female, 26 years old. post op seroma RADIATION DOSAGE (If Supplied By Facility): CTDIvol = ( 14.56 ) mGy, DLP = ( 1014.23 ) mGycm TECHNIQUE: Transaxial images were obtained from the dome of the diaphragm to the symphysis pubis without oral contrast. IV 100mL Isovue-300 was administered. Sagittal and coronal images were reconstructed. Individualized dose optimization techniques were used for this CT. COMPARISON: None. FINDINGS: The visualized lung bases are unremarkable. The visualized portions of the heart are within normal limits. Normal liver. The gallbladder is contracted. Normal spleen. Normal pancreas. Normal bilateral adrenal glands. Normal right kidney. Normal left kidney. Normal visualized stomach. Normal small intestine. Normal colon. The appendix is visualized and appears normal. Normal abdominal aorta. Normal inferior vena cava. Normal retroperitoneum. Normal urinary bladder. There is scarring in the anterior abdominal wall the pelvis likely from a recent PFANNENSTIEL incision but no loculated fluid collection to suggest postoperative seroma, hematoma, or abscess. Normal osseous structures. CT/Abdomen/Pelvis WITH Contrast IMPRESSION: Normal postoperative changes in the anterior abdominal wall of the pelvis no postoperative seroma, hematoma, or abscess. Electronically Signed: Rebel Dias MD at 13:15 EDT Tel , Service support ,
== END ==
PROVIDERS: Referring Provider Obstetrics & Gynecology; Visit Provider Obstetrics & Gynecology
DX: T88.8XXA Other specified complications of surgical and medical care, not elsewhere classified, initial encounter (principal)
CPT/HCPCS: 74177; Q9967

== ENCOUNTER → 2021-07-18 | Outpatient (CLI) | payer BC, SELFPAY | END | disposition home or self-care (01) | PROVIDERS: Referring Provider Nurse Practitioner Women's Health; Visit Provider Nurse Practitioner Women's Health | DX: T88.8XXA Other specified complications of surgical and medical care, not elsewhere classified, initial encounter (principal) | CPT/HCPCS: 87070; 87077; 87186; 87205 ==

== ENCOUNTER → 2022-03-15 | Outpatient (CLI) | payer BC, SELFPAY ==
[2022-03-15 17:12] LABS: Absolute Lymphocyte Count 1.38 X10^3/uL (0.83-4.51); Absolute Neutrophil Count 5.3 X10^3/uL (2.0-7.7); Basophil# 0.03 X10^3/uL; Basophil% 0.4 % (0-1); Eosinophils% 1.4 % (0-5); Hematocrit 35.6 % (37-47); Hemoglobin 11.4 g/dL (12.0-15.0); Lymphocyte # 1.38 X10^3/ul (0.83-4.51); Lymphocyte % 18.9 % (19-41); Mean Corpuscular Hgb 27.7 pg (27.0-32.0); Mean Corpuscular Volume 86.4 fL (81-99); Mean Platelet Vol. 9.2 fl (6.2-12.0); Monocyte# 0.44 X10^3/uL; NRBC Flagged by Analyzer 0 % (0-5); Neutrophil # 5.32 X10^3/uL (2.7-7.7); Neutrophil % 72.9 % (47-70); Platelet Count 320 K/mm3 (150-450); RBC Distribution Width CV 16.5 % (11.6-14.6); RBC Distribution Width SD 51.8 fl (35.1-43.9); Red Blood Count 4.12 M/mm3 (4.2-5.4); White Blood Count 7.3 K/mm3 (4.4-11.0)
[2022-03-16 09:20] LABS: HIV - WCH Non-Reactive (Nonreactive); Hepatitis B Surface Antigen Non-Reactive (Nonreactive); Hepatitis C Antibody Non-Reactive (Nonreactive); Rubella IgG Reactive (Nonreactive); Syphilis Antibodies Non-reactive
[2022-03-19 11:08] LABS: Chlamydia By Nucleic Acid AMP Negative (Negative)
[2022-03-19 11:45] LABS: Gonococcus By Nucleic Acid AMP Negative (Negative)
== END | disposition home or self-care (01) ==
PROVIDERS: PCP Family Medicine; Referring Provider Obstetrics & Gynecology; Visit Provider Obstetrics & Gynecology
DX: Z34.90 Encounter for supervision of normal pregnancy, unspecified, unspecified trimester (principal)
CPT/HCPCS: 36415; 85025; 86703; 86762; 86780; 86803; 86850; 86870; 86900; 86901; 87340; 87491; 87591

== ENCOUNTER → 2022-05-10 | Outpatient (CLI) | payer BC, SELFPAY | END | disposition home or self-care (01) | LOC: LABSPEC 16:53 | PROVIDERS: PCP Family Medicine; Visit Provider Nurse Practitioner Women's Health | DX: O23.40 Unspecified infection of urinary tract in pregnancy, unspecified trimester (principal) | CPT/HCPCS: 87077; 87086; 87088; 87186 ==

== ENCOUNTER → 2022-05-22 | Outpatient (CLI) | payer BC, SELFPAY ==
[2022-05-22 16:07] LABS: NATERA MAILED SPECIMEN
== END | disposition home or self-care (01) ==
LOC: PAVLAB 15:06
PROVIDERS: PCP Family Medicine; Referring Provider Obstetrics & Gynecology; Visit Provider Obstetrics & Gynecology
DX: Z34.82 Encounter for supervision of other normal pregnancy, second trimester (principal); Z3A.00 Weeks of gestation of pregnancy not specified
CPT/HCPCS: 36415

== ENCOUNTER → 2022-07-19 | Outpatient (CLI) | payer BC, SELFPAY ==
[2022-07-19 13:27] LABS: Absolute Lymphocyte Count 1.66 X10^3/uL (0.83-4.51); Basophil# 0.05 X10^3/uL; Basophil% 0.4 % (0-1); Eosinophil# 0.13 X10^3/uL; Hematocrit 33.3 % (37-47); Hemoglobin 10.2 g/dL (12.0-15.0); Lymphocyte # 1.66 X10^3/ul (0.83-4.51); Lymphocyte % 13.2 % (19-41); Mean Corp Hgb Conc 30.6 g/dL (32-36); Mean Corpuscular Hgb 26.2 pg (27.0-32.0); Mean Corpuscular Volume 85.4 fL (81-99); Mean Platelet Vol. 9.2 fl (6.2-12.0); Monocyte# 0.63 X10^3/uL; NRBC Flagged by Analyzer 0 % (0-5); Neutrophil # 10.02 X10^3/uL (2.7-7.7); Neutrophil % 79.6 % (47-70); Platelet Count 333 K/mm3 (150-450); RBC Distribution Width CV 15.7 % (11.6-14.6); RBC Distribution Width SD 47.5 fl (35.1-43.9); White Blood Count 12.6 K/mm3 (4.4-11.0)
[2022-07-19 13:43] LABS: Glucose Challenge Gest 1H 50g 99 mg/dL (70-140)
== END | disposition home or self-care (01) ==
LOC: PAVLAB 13:05
PROVIDERS: PCP Family Medicine; Referring Provider Obstetrics & Gynecology; Visit Provider Obstetrics & Gynecology
DX: Z34.92 Encounter for supervision of normal pregnancy, unspecified, second trimester (principal); Z3A.21 21 weeks gestation of pregnancy
CPT/HCPCS: 36415; 82950; 85025

== ENCOUNTER → 2022-08-31 | Outpatient (CLI) | payer BC, SELFPAY ==
[2022-08-31 16:04] LABS: Basophil# 0.03 X10^3/uL; Basophil% 0.3 % (0-1); Eosinophil# 0.12 X10^3/uL; Hemoglobin 11.8 g/dL (12.0-15.0); Lymphocyte % 13.8 % (19-41); Mean Corp Hgb Conc 31.9 g/dL (32-36); Mean Corpuscular Volume 87.7 fL (81-99); Mean Platelet Vol. 9.3 fl (6.2-12.0); Monocyte# 0.77 X10^3/uL; Monocyte% 6.6 % (0-10); NRBC Flagged by Analyzer 0 % (0-5); Neutrophil # 9.01 X10^3/uL (2.7-7.7); Neutrophil % 77.4 % (47-70); Platelet Count 284 K/mm3 (150-450); RBC Distribution Width CV 18.7 % (11.6-14.6); RBC Distribution Width SD 59.7 fl (35.1-43.9); Red Blood Count 4.22 M/mm3 (4.2-5.4); White Blood Count 11.6 K/mm3 (4.4-11.0)
== END | disposition home or self-care (01) ==
LOC: LAB 15:25
PROVIDERS: PCP Family Medicine; Visit Provider Obstetrics & Gynecology
DX: O99.019 Anemia complicating pregnancy, unspecified trimester (principal)
CPT/HCPCS: 36415; 85025

== ENCOUNTER → 2022-09-14 | Outpatient (CLI) | payer BC, SELFPAY ==
--- NOTE | 2022-09-14 13:31 | US_ITS ---
STUDY: SECOND AND THIRD TRIMESTER OBSTETRICAL ULTRASOUND - LIMITED REASON FOR EXAM: Female, 27 years old growth -- ABN ANTIBODY TITER -- ANEMIA LMP: 01/07/2022. PRIOR ULTRASOUND: None. TECHNIQUE: Transabdominal TECHNICAL QUALITY: Adequate. FINDINGS: There is a single intrauterine fetus. The fetus is in a cephalic presentation. There is demonstrated cardiac activity with a heart rate of 150 bpm. There is a normal amniotic fluid volume. The largest amniotic fluid pocket measures 5.1 cm x 7.3 cm. The amniotic fluid index (JUANITA) is 19.4 cm. The placenta is posterior in location and is not low lying. There are Grade 1 placental changes. The cervix was not able to be measured since the patient did not fill the bladder. BIOMETRY: BPD: 8.91 cm: 36 weeks, 0 days HC: 32.76 cm: 37 weeks, 1 days AC: 32.14 cm: 36 weeks, 0 days FL: 7.07 cm: 36 weeks, 2 days Age by LMP: 35 weeks, 5 days. NEO by LMP: 10/14/2022. age by current US: 36 weeks, 2 days. NEO by current US: 10/10/2022. Estimated weight: 2885 grams, +/- 433 grams, 64.4 percentile. US/OB Limited With Biometrics IMPRESSION: Single live intrauterine gestation with a mean gestational age of 36 weeks and 2 days. Electronically Signed: Philippe Macdonald MD at 14:01 EDT ,
== END | disposition home or self-care (01) ==
LOC: US 13:30
PROVIDERS: PCP Family Medicine; Referring Provider Obstetrics & Gynecology; Visit Provider Obstetrics & Gynecology
DX: O99.891 Other specified diseases and conditions complicating pregnancy (principal); R76.0 Raised antibody titer; Z3A.36 36 weeks gestation of pregnancy
CPT/HCPCS: 76816

== ENCOUNTER → 2022-09-21 | Outpatient (CLI) | payer BC, SELFPAY | END | disposition home or self-care (01) | PROVIDERS: PCP Family Medicine; Referring Provider Obstetrics & Gynecology; Visit Provider Obstetrics & Gynecology | DX: Z34.90 Encounter for supervision of normal pregnancy, unspecified, unspecified trimester (principal) | CPT/HCPCS: 87081 ==

== ENCOUNTER → 2022-09-27 | Outpatient (CLI) | payer BC, SELFPAY | END | disposition home or self-care (01) | LOC: LABSPEC 10:27 | PROVIDERS: PCP Family Medicine; Visit Provider Nurse Practitioner Women's Health | DX: O23.40 Unspecified infection of urinary tract in pregnancy, unspecified trimester (principal) | CPT/HCPCS: 87086; 87088 ==

== ENCOUNTER 2022-10-02 06:30 | Inpatient (IN) | payer BC, SELFPAY ==
[2022-10-02] VITALS (22 sets, daily range): BP systolic 101–121; BP diastolic 51–75; PULSE 77–115; RESP 16–18; TEMP 36.2–37.1; O2SAT 95–100; BMI 43.5
--- NOTE | 2022-10-02 | FALS_PTH ---
PATIENT: RYNE MARROQUIN LOC: WP U#:[id number] AGE/SX: 27/F ROOM: WP008 RE10/02/[address]: Dr. Anjana Dorado MD : 1995 BED: 1 DIS: 10/04/2022 SPEC #: [id number] RECD: 10/02/22 10:16 STATUS: HUSSEIN CAMERONDerrick #: [id number] ANGELA: 10/02/22 00:[address]: Anjana Dorado DEPT: SURGICAL PATHOLOGY RECD BY: Satnam Santo ENTERED: 10/02/22 10:16 SP TYPE: FALL TUBES OTHR DR: Dr. Yohan Stone MD Tissues: Fallopian tube Procedures: Surgery Specimen Level II HEADER OPERATION: Repeat section PRE-OP DIAGNOSIS: Tubal ligation TISSUE SUBMITTED: Fallopian tubes MICROSCOPIC DIAGNOSIS Bilateral fallopian tubes, salpingectomy: Bilateral fallopian tubes, no pathologic diagnosis. /SJ: 10/03/22 MICROSCOPIC DESCRIPTION Slides are reviewed. GROSS DESCRIPTION Received in fixative is one container labeled with the patient's name and designated bilateral fallopian tubes. The specimen consists of two fallopian tubes with left tube is identified by a suture. The right fallopian measures 9 cm in length and 1.0 cm in diameter. The left fallopian measures 6.5 cm in length and 0.6 cm in diameter. Both fallopian tubes have normal fimbriated ends. No mass lesions are identified. [place] Reverse Winder sections are submitted in two cassettes as follows: 1 - right fallopian tube, 2 ? left fallopian tube. / DEBBIE:BABITA 10/02/2022 TC:4 CPT: 23453 x2
[2022-10-02] MEDS: Lactated Ringers 1,000 ML 250 ML IV (05:52)
[2022-10-02 06:12] LABS: Absolute Lymphocyte Count 1.42 X10^3/uL (0.83-4.51); Absolute Neutrophil Count 9.5 X10^3/uL (2.0-7.7); Basophil# 0.04 X10^3/uL; Basophil% 0.3 % (0-1); Eosinophil# 0.11 X10^3/uL; Eosinophils% 0.9 % (0-5); Hematocrit 40.5 % (37-47); Hemoglobin 12.9 g/dL (12.0-15.0); Lymphocyte # 1.42 X10^3/ul (0.83-4.51); Lymphocyte % 12.1 % (19-41); Mean Corp Hgb Conc 31.9 g/dL (32-36); Mean Corpuscular Hgb 28.5 pg (27.0-32.0); Mean Corpuscular Volume 89.6 fL (81-99); Mean Platelet Vol. 9.6 fl (6.2-12.0); Monocyte% 5.1 % (0-10); NRBC Flagged by Analyzer 0 % (0-5); Neutrophil # 9.46 X10^3/uL (2.7-7.7); Neutrophil % 80.9 % (47-70); Platelet Count 252 K/mm3 (150-450); RBC Distribution Width CV 17.8 % (11.6-14.6); RBC Distribution Width SD 58.6 fl (35.1-43.9); Red Blood Count 4.52 M/mm3 (4.2-5.4); White Blood Count 11.7 K/mm3 (4.4-11.0)
[2022-10-02] MEDS: Lactated Ringers 1,000 ML 999 ML IV ×2 (06:45→10:02)
[2022-10-02] MEDS: Acetaminophen 500 MG Tablet 1000 MG PO ×3 (06:54→18:29)
[2022-10-02] MEDS: Sodium Citrate/Citric Acid 30 ML UDC PO (06:54)
[2022-10-02] MEDS: Cefazolin 2 GM in 0.9% Normal Saline 100 ML IV (07:22)
--- NOTE | 2022-10-02 07:38 | DCINST_ITS ---
Discharge Instructions Diet Discharge Diet: No restrictions Activity Discharge Activity: Return to Normal Activity, May Drive (when pain free and off narcotic pain meds), May Shower and May Take a Tub Bath (in 4 weeks) May resume sexual activity in: 6 weeks Weight Bearing Status: Full weight bearing Lifting Restrictions: under 30 lbs for 6 weeks Dressing / Incision Call your doctor if your incision/area has: Continuous Slow Oozing, Sudden Increased Bleeding, Increased Pain/ Swelling, Increased Redness, Foul Smelling Discharge and - Call your doctor if you observe: Fever of 101 or Higher, Using more than 1 pad per hour, Shortness of breath, Chest pain and Uncontrolled pain Suture Line Care: Avoid Pulling/Pushing and Avoid Pinching/Bending Change Dressing in: 1 week (leave open to air after removed) Remove Dressing in: 1 week (if present) Cleanse incision/area with: Soap & Water and Keep Dressing Clean & Dry Follow Up Care Please Follow Up With: Anjana Dorado MD When: Call to make an appointment with your doctor for a postop visit in 2 and 6 weeks. Test Results: Test results from this visit will be discussed in further detail at your follow- up appointment, if applicable. Discharge Plan Admission Admit Date/Time: 10/02/22 06:30 Attending Provider: Anjana Dorado Primary Care Provider: Yohan Stone Discharge Orders/Prescriptions Prescriptions: New oxycodone-acetaminophen [Percocet] 5-325 mg tablet 1 tab PO Q6H PRN (Reason: pain) 7 Days Qty: 20 0RF naproxen 250 mg tablet 250 - 500 mg PO Q8H PRN PRN (Reason: MILD PAIN) Qty: 30 1RF Continued PNV #[id number] acid-dha 35 mg iron-5 mg iron-1 mg capsule 1 cap PO DAILY iron 50 mg iron Tablet 1 tab PO DAILY Referrals / Follow Up: Yohan Stone MD [Primary Care Provider] - Disposition Disposition (needs filled in before D/C Order can be placed): Home, Self Care
--- NOTE | 2022-10-02 07:38 | OP.PCM_ITS ---
Assessment & Plan (1) Active labor at term: (2) Supervision of normal : QUALIFIERS: Trimester: third trimester COMMENT: PRR NEO 01/07/22, girl, PC Larry Atul (3) : QUALIFIERS: Weeks of gestation: 36 weeks Qualified Code(s): Z3A.36 - 36 weeks gestation of COMMENT: GBS neg, NIPT low risk, carrier screening declined. Anatomy overall normal except choroid plexus cysts (4) Previous delivery affecting : COMMENT: suspected CPD plan RLTCS. Scheduled for 10/08 @ 7:30am with (5) UTI in : COMMENT: keflex given, diagnosed at urgent care. repeat urine culture. (6) Abnormal antibody titer: COMMENT: blood needs to be warmed prior to pt receiving (7) Choroid plexus cyst of fetus affecting care of mother, antepartum: COMMENT: Bilateral, NIPT low risk (8) Contraception management: COMMENT: wants tubal with RC/S (9) Anemia affecting , antepartum: COMMENT: resolve with FE (10) delivery delivered: COMMENT: RLTCS BS girl Andrez 38 (11) hemorrhage: COMMENT: 1500 cc loss delayed within 4 hours post delivery due to atony, treated initially with methergine, pitocin, massage, hemabate, and TXA. stable. 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 Mcghee catheter was placed. The patient was placed in the dorsal supine position with leftward tilt. Patient was prepped and draped in the normal sterile fashion. Pfannenstiel skin incision was made with the scalpel and carried through to the underlying layer of fascia with the scalpel. Fascia was nicked in the midline and the incision extended laterally. The rectus bellies were dissected off superiorly and inferiorly with out complication both sharply and bluntly. The peritoneum was entered digitally. The incision was stretched and a low transverse uterine incision was made with the scalpel. The infant's head was delivered atraumatically followed by the anterior and posterior shoulders without complication the rest of the infant delivered. The cord was clamped and cut and the was handed off to awaiting nurse. The placenta was delivered spontaneously immediately following and was noted to be intact and have a three- vessel cord. The uterus was exteriorized cleared of all clots and debris, and the incision was closed in a single layer closure using #1 Monocryl. The ovaries and fallopian tubes were noted to be within normal limits. Patient had desired sterilization and was counseled preoperatively regarding irreversibility and permanency. Therefore bilateral fallopian tubes were elevated and transected across using a LigaSure device starting proximally to distally without complication the entire fallopian tubes were removed. The uterus was returned to the maternal abdomen and gutters were cleared of all clots and debris. some mild uterine atony was encountered with uterine massage and IV pitocin treating it appropriately. The peritoneum was closed with 3-0 Monocryl in a running fashion. Gloves were changed prior to fascial closure. Fascia was closed with 0 PDS in a running fashion. Subcutaneous tissue was copiously irrigated and the skin was closed with 3-0 Monocryl in a subcuticular fashion. Mepilex dressing was applied without complication. Patient was taken to recovery in stable condition. It was discussed with the patient that based on the clinical information obtained during this encounter, combined with her history, at this time I would recommend cesareans for future deliveries if further pregnancies are desired. in the recovery room patient passed 600cc of clot and was given methergine, hemabate, and IV TXA to treat hemorrhage. overall stable then with minimal bleeding. Amniotic Membrane Rupture Type: Artificial Amniotic Fluid Description: Clear Placenta Disposition: [facility] Cord Vessel Description: 3 Vessels Cord Entanglement: None Delayed Cord Clamping: Yes Complications Risks of Surgery Discussed w/Patient: Bleeding, Infection, Need for Future C- Sections and Injury to surrounding structure(s) including bowel and bladder Vaginal Delivery Complication Complications: None Admit VTE Documentation VTE Present on Admission: No VTE Mechan Device Prophylaxis: SCD's Multi Select Codes Urinary/Genital Urinary/Genital CPT Codes: 59736 C/S+TL (bilateral salpingectomy) and 99541 Delivery [facility]
--- NOTE | 2022-10-02 07:38 | HP.PCM.OB_ITS ---
HPI - General General Date of Admission: 10/02/22 HPI Narrative RYNE MARROQUIN, is a 27 F who presents IAL made change from 3-4 with regular ctx previous , requesting repeat surgery. she is also wanting sterilization Maternal Data Information NEO Calculator Estimated Delivery Date Method Current WG Current Estimate 10/14/22 LMP (Certain) 38w 3d Other Estimates 10/17/22 Ultrasound #1 38w 0d PFSH PFSH Medical History (Updated 10/03/22 @ 03:[address] Anjana Dorado MD) Family history of hearing loss at age younger than 7 years Home Medications vitamin #56-iron 35 mg and 5 mg-folic acid 1 mg-dha capsule 1 cap PO DAILY 03/15/22 [History Last Taken 10/01/22 20:00] iron 50 mg iron tablet 1 tab PO DAILY 10/02/22 [History Last Taken 10/01/22 08:00] Allergy/AdvReac Type Severity Reaction Status Date / Time Sulfa (Sulfonamide Allergy Intermediate Rash Verified 10/02/22 02:57 Antibiotics) Family History Father Myocardial infarction Surgical History (Updated 10/02/22 @ 05:55 by Barb Yuan) Delivery by section H/O wrist surgery History of tonsillectomy Social History adopted: No household members: spouse housing: house current occupational status: employed 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 Date Name GA/Weeks Outcome Route Bth Weight Infant Gen Labor Lgth Anesthesia Del Locatn Provider FOB 03/09/21 Larry 39 live - full term 8lbs 3oz Male [facility] [place] Delivery Date: 03/09/21 Last Updated by: Cleo Okeefe admitted in active labor, pushed for 3.5 hrs, csection for suspected CPD and arrest of descent Visit Details Expected Delivery Route/Plan RLTCS BS Plans Covid status: discussed Flu vaccine: discussed Tdap vaccine: rec'd Rhogam: na LARC form signed: yes Problem list reviewed and updated with the most current plan of care details and appropriate orders placed. Relevant counseling for the gestational age provided. Continue routine care and follow up unless otherwise noted in visit notes/problem list details OB Flowsheet Initial Weight: 209 lb Date -?-?-?-?-?-?-?-?-?-?-?-?- EGA Weight BP Urine Prot -?-?-?-?-?-?-?-?-?-?-?-?- Glucose FHR FuHt Pres Dilation -?-?-?-?-?-?-?-?-?-?-?-?- Effaced St Visit Note 03/15/22 -?-?-?-?-?-?-?-?-?-?-?-?- 9w 4d 209 lb (+0 oz) 110/80 -?-?-?-?-?-?-?-?-?-?-?-?- 189 -?-?-?-?-?-?-?-?-?-?-?-?- SM- CRL cons wit h LMP SM- CRL 2.2 cons with LMP 04/13/22 -?-?-?-?-?-?-?-?-?-?-?-?- 13w 5d 207 lb (-2 lb) 100/70 -?-?-?-?-?-?-?-?-?-?-?-?- 150 -?-?-?-?-?-?-?-?-?-?-?-?- SM- no vb crampi ng 05/10/22 -?-?-?-?-?-?-?-?-?-?-?-?- 17w 4d 207 lb 8 oz (-1 lb 8 oz) 106/68 Negative -?-?-?-?-?-?-?-?-?-?-?-?- Negative 156 -?-?-?-?-?-?-?-?-?-?-?-?- -No Vb, LOF or cramping. Anatomy US w/mfm 05/1806/06/22 -?-?-?-?-?-?-?-?-?-?-?-?- 21w 3d 208 lb (-16 oz) 106/70 Negative -?-?-?-?-?-?-?-?-?-?-?-?- Negative 165 20 -?-?-?-?-?-?-?-?-?-?-?-?- JV- pt had radar operator o n ultrasound, normal nipt 07/09/22 -?-?-?-?-?-?-?-?-?-?-?-?- 26w 1d 216 lb 4 oz (+7 lb 4 oz) 108/66 Negative -?-?-?-?-?-?-?-?-?-?-?-?- Negative 158 26 -?-?-?-?-?-?-?-?-?-?-?-?- -No VB, LOF. G ood FM. [facility] 07/19/22 -?-?-?-?-?-?-?-?-?-?-?-?- 27w 4d 217 lb 8 oz (+8 lb 8 oz) 101/66 Negative -?-?-?-?-?-?-?-?-?-?-?-?- Negative 155 30 -?-?-?-?-?-?-?-?-?-?-?-?- JV- gct done tomargot ay. cbc shows mild anemia. recommed OTC iron to take opposite time of day from when takes pnv. no complaints today. 08/03/22 -?-?-?-?-?-?-?-?-?-?-?-?- 29w 5d 222 lb 8 oz (+13 lb 8 oz) 116/78 Negative -?-?-?-?-?-?-?-?-?-?-?-?- Negative 145 29 -?-?-?-?-?-?-?-?-?-?-?-?- JV- tdap today. no lof, vaginal bleeding, or dec fm. declines flu vaccine. 08/17/22 -?-?-?-?-?-?-?-?-?-?-?-?- 31w 5d 228 lb 6 oz (+19 lb 6 oz) 105/69 Negative -?-?-?-?-?-?-?-?-?-?-?-?- Negative 145 32 -?-?-?-?-?-?-?-?-?-?-?-?- LC- no lof,vb,ct x. good FM. Has rpt c/s scheduled 08/31/22 -?--?-?-?-?-?-?-?-?-?-?-?- 33w 5d 234 lb 2 oz (+25 lb 2 oz) 115/75 Negative -?-?-?-?-?-?-?-?-?-?-?-?- Negative 145 33 -?-?-?-?-?-?-?-?-?-?--?-?- JV- no lof, vagi nal bleeding, or dec fm plan for growth next visit. 09/14/22 -?-?-?-?-?-?-?-?-?-?-?-?- 35w 5d 234 lb 6 oz (+25 lb 6 oz) 111/75 Negative -?-?-?-?-?-?-?-?-?-?-?-?- Negative 143 35 -?-?-?-?-?-?-?-?-?-?-?-?- JV- no lof, vagi nal bleeding, or dec fm. 09/21/22 -?-?-?-?-?-?-?-?-?-?-?-?- 36w 5d 233 lb (+24 lb) 116/78 Negative -?-?-?-?-?-?-?-?-?-?-?-?- Negative 140 37 Cephalic -?-?-?-?-?-?-?-?-?-?-?-?- SM- no vb lof go od fm n oreuglar ctx gbs done 09/27/22 -?-?-?-?-?-?-?-?-?-?-?-?- 37w 4d 239 lb 4 oz (+30 lb 4 oz) 112/76 Negative -?-?-?-?-?-?-?-?-?-?-?-?- Negative 166 38 Cephalic -?-?-?-?-?-?-?-?-?-?-?-?- MH-declines inte rnal exam. Good FM. NO VB, LOF or reg CTX 10/02/22 -?-?-?-?-?-?-?-?-?-?-?-?- 38w 2d 238 lb (+29 lb) 121/75 110/70 110/70 101/59 111/66 102/66 112/74 105/64 103/61 118/58 101/58 108/62 102/53 117/71 106/67 112/66 94/57 102/57 -?-?-?-?-?-?-?-?-?-?-?-?- -?-?-?-?-?-?-?-?-?-?-?-?- NST FHR Rate Baby A Baseline: 140 Variability:: Moderate Accelerations:: 15 x 15 Decelerations:: None NST Reactive:: Yes FHR Category:: Category I Uterine Activity:: q3-5 ROS Constitutional Constitutional: Reports systems reviewed and no addt'l complaints, except as documented ENT HEENT: Reports systems reviewed and no addt'l complaints, except as documented Cardiovascular Cardiovascular: Reports systems reviewed and no addt'l complaints, except as documented Respiratory/Chest Respiratory/Chest: Reports systems reviewed and no addt'l complaints, except as documented Gastrointestinal Gastrointestinal: Reports systems reviewed and no addt'l complaints, except as documented and nausea; Denies abdominal pain Genitourinary Genitourinary: Reports systems reviewed and no addt'l complaints, except as documented, contractions Details: present and frequency (regular ) and movement Details: present Musculoskeletal Musculoskeletal: Reports systems reviewed and no addt'l complaints, except as documented Integumentary Integumentary: Reports as per HPI Neurologic Neurologic: Reports systems reviewed and no addt'l complaints, except as documented Endocrine Endocrinology: Reports systems reviewed and no addt'l complaints, except as documented Vital Signs Vital Signs Vital Signs: 10/02/22 02:49 10/02/22 02:49 10/02/22 02:51 Temperature Temperature Source Pulse Rate 91 Respiratory Rate Blood Pressure 121/75 H Blood Pressure Mean BP Systolic 121 BP Diastolic 75 Blood Pressure Source Blood Pressure Position Blood Pressure Location Pulse Ox 99 Oxygen Delivery Method 10/02/22 02:51 10/02/22 02:49 10/02/22 02:49 Temperature Temperature Source Temporal Pulse Rate 91 Respiratory Rate Blood Pressure Blood Pressure Mean BP Systolic BP Diastolic Blood Pressure Source Blood Pressure Position Blood Pressure Location Pulse Ox 99 Oxygen Delivery Method 10/02/22 02:49 10/02/22 06:39 10/02/22 06:39 Temperature 98.7 F Temperature Source Pulse Rate 85 Respiratory Rate Blood Pressure 110/70 Blood Pressure Mean BP Systolic 110 BP Diastolic 70 Blood Pressure Source Blood Pressure Position Blood Pressure Location Pulse Ox Oxygen Delivery Method 10/02/22 06:39 10/02/22 06:39 Temperature 97.6 F L Temperature Source Temporal Pulse Rate 85 Respiratory Rate 16 Blood Pressure 110/70 Blood Pressure Mean 83 BP Systolic BP Diastolic Blood Pressure Source Monitor Blood Pressure Position Semi-Fowlers Blood Pressure Location Left Arm Pulse Ox 98 98 Oxygen Delivery Method Room Air Weight Weight: 238 lb Body Mass Index (BMI) 43.5 Physical Exam Const alert, oriented x3 and healthy appearing Constitutional Narrative: uncomfortable with contractions HEENT normocephalic and moist oral mucous membranes Head and Scalp: atraumatic Neck full ROM, no lymphadenopathy, supple and thyroid normal General: trachea midline Thyroid: thyroid normal Lymph Lymphatic: no lymphadenopathy noted Chest inspection of chest normal Resp normal respiratory effort Cardio regular rate GI normal to inspection, nondistended, normoactive bowel sounds, soft to palpation and non-tender Inspection: gravid external exam normal Bimanual Exam - Vag & Uterus: uterus non-tender Manual OB Exam: estimated gestational size appropriate, presentation cephalic, dilated, effaced and station Extremity normal to inspection General Extremity: Negative for edema Skin no rashes or lesions noted Neuro deep tendon reflexes 2+ bilaterally Motor Exam: strength 5/5 throughout and clonus absent Psych mental status grossly normal Labs Labs Labs: Blood Type B POSITIVE Antibody Screen NEGATIVE Hct 40.5 % (37-47) Hgb 12.9 g/dL (12.0-15.0) Obstetrics US Syphilis Total Ab Non-reactive Rubella IgG Antibody Reactive (Nonreactive) Hep Bs Antigen Non-Reactive (Nonreactive) Chlamydia DNA (DIAZ) Negative (Negative) Neisseria gonorrhoeae DNA (DIAZ) Negative (Negative) HIV 1&2 Antibody Non-Reactive (Nonreactive) Glucose 1 Hr 50 gm 99 mg/dL (70-140) Rhogam given: No Assessment & Plan (1) Supervision of normal : QUALIFIERS: Trimester: third trimester COMMENT: PRR NEO 01/07/22, girl, PC [place] Atul (2) : QUALIFIERS: Weeks of gestation: 36 weeks Qualified Code(s): Z3A.36 - 36 weeks gestation of COMMENT: GBS neg, NIPT low risk, carrier screening declined. Anatomy overall normal except choroid plexus cysts (3) Previous delivery affecting : COMMENT: suspected CPD plan RLTCS. Scheduled for 10/08 @ 7:30am with SM (4) UTI in : COMMENT: keflex given, diagnosed at urgent care. repeat urine culture. (5) Abnormal antibody titer: COMMENT: blood needs to be warmed prior to pt receiving (6) Choroid plexus cyst of fetus affecting care of mother, antepartum: COMMENT: Bilateral, NIPT low risk (7) Contraception management: COMMENT: wants tubal with RC/S (8) Anemia affecting , antepartum: COMMENT: resolve with FE (9) Active labor at term: PLAN: Plan proceed with RLTCS and BS
[2022-10-02] MEDS: Oxytocin 15 Units/NS 250ml 15 UNITS/250 ML IV.SOLN 83 UNITS IV (08:41)
[2022-10-02] MEDS: Methylergonovine 0.2 MG/ML Ampul IM (08:43)
[2022-10-02] MEDS: Carboprost Tromethamine 250 MCG/ML Ampul IM (09:01)
[2022-10-02 09:03] LABS: Pathology Specimen OB SEE PATHOLOGY REPORT
[2022-10-02] MEDS: 0.9% Saline Lock 10 ML Syringe IV ×3 (09:18→22:20)
--- NOTE | 2022-10-02 09:36 | NURSING ---
[id number] pereira notified of total lochia amount since delivery being 539 cc and methergine was given at 0843; notified of maternal heart rate 115-120 fundus now firm after massage and u/2; orders received
[2022-10-02] MEDS: Ketorolac 30 MG/ML Syringe IV ×3 (10:01→22:20)
[2022-10-02] MEDS: Lactated Ringers 1,000 ML 100 ML IV (12:09)
[2022-10-02] MEDS: Enoxaparin 40 MG/0.4 ML Syringe SC (20:31)
[2022-10-03] VITALS (8 sets, daily range): BP systolic 94–113; BP diastolic 54–62; PULSE 84–98; RESP 16–17; TEMP 36–36.3; O2SAT 96–98
[2022-10-03] MEDS: Acetaminophen 500 MG Tablet 1000 MG PO ×4 (00:39→17:35)
[2022-10-03] MEDS: Ketorolac 30 MG/ML Syringe IV (04:20)
[2022-10-03] MEDS: 0.9% Saline Lock 10 ML Syringe IV (04:20)
[2022-10-03 05:53] LABS: Hematocrit 31.4 % (37-47); Hemoglobin 9.9 g/dL (12.0-15.0); Mean Corp Hgb Conc 31.5 g/dL (32-36); Mean Corpuscular Hgb 28.2 pg (27.0-32.0); Mean Corpuscular Volume 89.5 fL (81-99); Mean Platelet Vol. 9.6 fl (6.2-12.0); Platelet Count 216 K/mm3 (150-450); RBC Distribution Width CV 17.9 % (11.6-14.6); RBC Distribution Width SD 58.9 fl (35.1-43.9); Red Blood Count 3.51 M/mm3 (4.2-5.4); White Blood Count 8.8 K/mm3 (4.4-11.0)
--- NOTE | 2022-10-03 08:29 | PCM.PN.OB ---
Subjective Subjective Patient doing well without complaints. Tolerating PO. Ambulating and voiding without difficulty. Feeding well. Denies chest pain, shortness of breath, calf pain/swelling, fevers, chills, lightheadedness. Objective Data Objective Data Vital Signs: Vital Signs Temp Pulse Resp BP Pulse Ox O2 Del Method 97.0 F L 84 16 96/62 96 Room Air 10/03/22 07:59 10/03/22 07:59 10/03/22 07:59 10/03/22 07:59 10/03/22 07:59 10/03/22 07:59 Oxygen Delivery Method Room Air Weight: 238 lb Body Mass Index (BMI) 43.5 Intake & Output: Intake and Output for Last 24 Hours 10/01/22 10/02/22 10/03/22 23:59 23:59 23:59 Intake Total 4710.00 / 4710.00 Output Total 3080 / 3080 1350 / 1350 Balance 1630.00 / 1630.00 -1350 / -1350 Lab / Micro Data Attestation: I reviewed the patient's lab results. Result Diagrams: 10/03/22 05:45 Labs: Laboratory Results - last 24 hr 10/03/22 05:45: WBC 8.8, RBC 3.51 L, Hgb 9.9 L, Hct 31.4 L, MCV 89.5, MCH 28.2, MCHC 31.5 L, RDW Std Deviation 58.9 H, RDW Coeff of Cathy 17.9 H, Plt Count 216, MPV 9.6 ROS Constitutional Constitutional: Reports systems reviewed and no addt'l complaints, except as documented ENT HEENT: Reports systems reviewed and no addt'l complaints, except as documented Cardiovascular Cardiovascular: Reports systems reviewed and no addt'l complaints, except as documented Respiratory/Chest Respiratory/Chest: Reports systems reviewed and no addt'l complaints, except as documented Gastrointestinal Gastrointestinal: Reports systems reviewed and no addt'l complaints, except as documented and nausea; Denies abdominal pain Genitourinary Genitourinary: Reports systems reviewed and no addt'l complaints, except as documented Musculoskeletal Musculoskeletal: Reports systems reviewed and no addt'l complaints, except as documented Integumentary Integumentary: Reports as per HPI Neurologic Neurologic: Reports systems reviewed and no addt'l complaints, except as documented Endocrine Endocrinology: Reports systems reviewed and no addt'l complaints, except as documented Physical Exam Const alert, oriented x3 and no apparent distress General Appearance: cooperative HEENT normocephalic Eyes PERRL Neck full ROM Chest inspection of chest normal Resp normal respiratory effort, normal air movement, no retractions and no use of accessory muscles GI soft to palpation GI Narrative: fundus firm at u. dressing CDI Extremity normal to inspection and full ROM Skin no rashes or lesions noted Psych mental status grossly normal and thought process normal Appearance: grossly normal Assessment & Plan (1) hemorrhage: COMMENT: 1500 cc loss delayed within 4 hours post delivery due to atony, treated initially with methergine, pitocin, massage, hemabate, and TXA. stable. repeat cbc pod1 PLAN: start on PO iron supplementation. asymptomatic anemia (2) delivery delivered: COMMENT: KATHRIN DUNN girl Andrez 38 PLAN: s/p LTCS PPD # 1 1. routine post care 2. breast feeding- support given 3. rh positive 4. rubella immune (3) Abnormal antibody titer: COMMENT: blood needs to be warmed prior to pt receiving
[2022-10-03] MEDS: Enoxaparin 40 MG/0.4 ML Syringe SC ×2 (09:20→22:12)
[2022-10-03] MEDS: Naproxen 500 MG Tablet PO ×2 (09:20→17:29)
[2022-10-03] MEDS: Ferrous Sulfate 325 MG Tablet PO ×2 (11:34→17:28)
[2022-10-03] MEDS: Senna/Docusate Sodium 1 Tablet PO (11:35)
[2022-10-04] MEDS: Acetaminophen 500 MG Tablet 1000 MG PO ×3 (00:04→11:55)
[2022-10-04 01:40] VITALS: BP 110/58; PULSE 91; RESP 17; TEMP 36.2
[2022-10-04] MEDS: Naproxen 500 MG Tablet PO ×2 (01:42→09:51)
[2022-10-04 08:00] VITALS: BP 105/72; PULSE 92; RESP 18; TEMP 36.1; O2SAT 98
[2022-10-04] MEDS: Ferrous Sulfate 325 MG Tablet PO ×2 (09:04→11:55)
[2022-10-04] MEDS: Enoxaparin 40 MG/0.4 ML Syringe SC (09:51)
[2022-10-04] MEDS: Senna/Docusate Sodium 1 Tablet PO (09:52)
[2022-10-04 12:00] VITALS: BP 117/60; PULSE 93; RESP 18; TEMP 36.6; O2SAT 96
== END 2022-10-04 13:15 | disposition home or self-care (01) | DRG 784 ==
LOC: WPOUT 06:42 → WP 06:42
PROVIDERS: Admitting Provider Obstetrics & Gynecology; PCP Family Medicine; Referring Provider Obstetrics & Gynecology; Visit Provider Obstetrics & Gynecology
DX: O34.211 Maternal care for low transverse scar from previous cesarean delivery (principal); O72.1 Other immediate postpartum hemorrhage; O35.03X0 Maternal care for (suspected) central nervous system malformation or damage in fetus, choroid plexus cysts, not applicable or unspecified; D64.9 Anemia, unspecified; O99.02 Anemia complicating childbirth; Z3A.36 36 weeks gestation of pregnancy; Z30.2 Encounter for sterilization; Z37.0 Single live birth
CPT/HCPCS: 59025; 59050; 85025; 85027; 86850; 86900; 86901; 88302; 99218; 99251; J7120; A4216; G0378; G0463; J2405